=== PATIENT | female | born 1955 | race Hispanic/Latino ===

== ENCOUNTER 2024-09-28 06:37 | Day surgery (SDC) | payer OTHER ==
[2024-09-23 10:10] LABS: BASOPHILS # (AUTO) 0.06 K/uL (0.00-0.20); BASOPHILS % (AUTO) 0.7 % (0.0-5.0); EOSINOPHILS # (AUTO) 0.14 K/uL (0.00-0.70); EOSINOPHILS % (AUTO) 1.6 % (0.0-8.0); HEMATOCRIT 41.4 % (36-48); IMMATURE GRANULOCYTE ABSOLUTE 0.04 K/uL (0-1); LYMPHOCYTES # (AUTO) 1.5 K/uL (1.0-4.8); LYMPHOCYTES % (AUTO) 17.7 % (21.0-51.0); MEAN CORPUSCULAR HEMOGLOBIN 30.3 pg (27.0-33.0); MEAN CORPUSCULAR HGB CONC 31.9 g/dL (32.0-36.0); MEAN CORPUSCULAR VOLUME 95.2 fL (79-99); MONOCYTES # (AUTO) 0.3 K/uL (0.1-1.0); NEUTROPHILS # (AUTO) 6.5 K/uL (1.8-7.7); NEUTROPHILS % (AUTO) 75.5 % (40.0-77.0); PLATELET COUNT (AUTO) 245 K/uL (130-400); RED BLOOD CELL COUNT(AUTO) 4.35 MIL/uL (4.00-5.50); RED CELL DISTRIBUTION WIDTH 14.4 % (11.0-15.5); WHITE BLOOD COUNT (AUTO) 8.6 K/uL (4.8-10.8)
[2024-09-23 10:12] VITALS: PULSE 75; RESP 18; TEMP 97.2
[2024-09-23 10:23] LABS: PROTHROMBIN TIME 10.6 SEC (9.6-11.6)
[2024-09-23 10:24] LABS: PARTIAL THROMBOPLASTIN TIME 27.9 SEC (26.3-35.5); POTASSIUM 5.5 mmol/L (3.5-5.1)
[2024-09-23 10:27] LABS: CREATININE 8.7 mg/dL (0.5-1.0)
--- NOTE | 2024-09-23 11:06 | EKG ---
[facility] Test Date: 2024-09-23 Test Time: 10:15:56 Pat Name: DANI LINDQUIST Department: [facility] Room: Gender: F Hospital Pharmacist: [id number] : 1955 Requested By: ORLANDO CEDILLO Order Number: [id number] Reading MD: Isabel Burdick Measurements Intervals [place] Rate: 70 P: 49 SC: 151 QRS: 43 QRSD: 70 T: 62 QT: 391 QTc: 423 Interpretive Statements Sinus rhythm No previous ECG available for comparison Electronically Signed On 09-25-2024 09:32:59 CDT by Isabel Burdick Please click the below link to view image of tracing.
[2024-09-28] VITALS (15 sets, daily range): BP systolic 98–181; BP diastolic 42–75; PULSE 62–77; RESP 12–18; TEMP 97.2–97.6
[~2024-09-28] VITALS: Ht 152.4 cm; Wt 89.1 kg
[~2024-09-28 06:37] MED LIST: AMLO-257 PO; ASPI-1443 PO; CALC667T8 PO; CLOP75TA32 PO; DOCU100C33 PO; FOLI1TAB85 PO; FURO40TA5 PO; INSU100I15 SQ; INSU3INS3 SQ; LEVO50TA11 PO; ROSU40TA88 PO
[2024-09-28] MEDS: 0.9%NACL 1000ML 1,000 ML IV ONE (06:40)
[2024-09-28] MEDS: acetaMINOPHEN 100 ML ONE (07:21)
[2024-09-28] MEDS: FAMOTIDINE 20MG VIAL IV ONE (07:22)
[2024-09-28] MEDS ORDERED: LIDOCAINE PF 100MG/5ML (2%) SYRINGE 5ML ONE (07:29)
[2024-09-28] MEDS ORDERED: proPOFol 10 MG/ML 20ML VIAL IV ONE (07:30)
[2024-09-28] MEDS ORDERED: rocuRONium bROMide 10MG/1ML 5ML VL ONE (07:30)
[2024-09-28] MEDS ORDERED: FENTanyl CITRate PF 50 MCG/1 ML 2ML VIAL ONE (07:30)
[2024-09-28 07:31] LABS: POTASSIUM 5.6 mmol/L (3.5-5.1)
[2024-09-28 07:39] LABS: CREATININE 8.3 mg/dL (0.5-1.0)
[2024-09-28] MEDS ORDERED: ondanSETRON 4MG INJ ONE (08:25)
[2024-09-28] MEDS ORDERED: dexaMETHasone SOD PHOSPHATE 10MG/ML 1ML VIAL ONE (08:25)
[2024-09-28] MEDS ORDERED: HEParin-NS 1,000 UNIT/500 ML 500 ML IV ONE (08:27)
[2024-09-28] MEDS: ceFAZolin SODIUM 2 GM VIAL ONE (08:35)
[2024-09-28] MEDS ORDERED: HEParin 10,000 UNIT/10ML (1,000 UNIT/ML) VIAL ONE (08:37)
[2024-09-28] MEDS ORDERED: phenylEPHRINE HCL 10 MG/ML 1ML VIAL IV ONE (09:04)
[2024-09-28] MEDS ORDERED: GLYCOPYRROLATE 0.2 MG/ML 5 ML VIAL ONE (10:04)
[2024-09-28] MEDS ORDERED: NEOSTIGMINE METHYLSULFATE 1MG/ML IV ONE (10:04)
[2024-09-28] MEDS ORDERED: PROTamine SULFate 10 MG/ML 5 ML VIAL ONE (10:07)
[2024-09-28] MEDS: hydroMORPHone 1 MG INJ ONE (10:52)
--- NOTE | 2024-09-28 11:43 | OP ---
Operative Note: DATE OF PROCEDURE: 09/28/24 SURGEON: ORLANDO CEDILLO MD MACHINING ASSOCIATE: [] PREOPERATIVE DIAGNOSIS: End-stage renal disease POSTOPERATIVE DIAGNOSIS: End-stage renal disease PROCEDURE: Left upper extremity brachiobasilic fistula creation with transposition, and ligation of previous brachiocephalic fistula INDICATIONS: Patient needs access for dialysis ESTIMATED BLOOD LOSS: 15cc Devices left in place: None Anesthesia: General endotracheal DESCRIPTION OF PROCEDURE: Patient is brought to the operating room placed on the operating table in a supine position. Once general endotracheal anesthesia is achieved patient's left upper extremity up to the axilla is prepped and draped in sterile fashion. Using ultrasound we identified the basilic vein and confirmed that it was adequate for fistula creation. We then proceeded to create a longitudinal incision medially in the arm and dissected down through the subcutaneous tissue to expose the basilic vein. We exposed that for a length of about 20 cm down to the antecubital fossa. And clipped all its branches. We then proceeded to create a transverse incision at the antecubital fossa. Expose the brachial artery for a length of about 4 cm and obtained proximal and distal control. There was the previous fistula there that we ligated just distal to the anastomosis and then proceeded to ligate again more distal in the fistula and divided between the two ties. Our new anastomosis was done proximal to this previous anastomosis. We then asked anesthesia to give 5000 units of heparin. I then proceeded to clamp the basilic vein proximally and distally divided it at the level of the elbow. And suture ligated the distal and end. We then proceeded to to dilate the vein with heparinized saline and ensured that there were no leaks from all the branches were clipped or sutured. We then proceeded to use a [place] tunneler to tunnel the vein medially and brought it out through the antecubital fossa incision. I then clamped the brachial artery proximally and distally. I then proceeded to create a end-to-side anastomosis between the brachial artery and the basilic vein at the antecubital fossa with 6-0 Prolene. I then opened up the clamp to the vein first and that there to be backflow. And then proceeded to open the proximal clamp on the artery emanated flush out the anastomosis and then open the distal clamp. I then proceeded to suture the anastomosis. We ensured with a Doppler that we had a strong palmar arch pulse at the left hand and ulnar and radial pulses as well. We had a good thrill throughout the fistula. We then closed both incisions with 2 layers with subcutaneous tissue being closed with 2-0 Vicryl in running fashion and the skin was closed with 4-0 Monocryl in running fashion. Dermabond is applied over top of the incisions. Skin dressings were applied over top patient tolerated the procedure well all counts were correct x2 at the end of the procedure. ORLANDO CEDILLO MD Sep 28, 2024 11:43
--- NOTE | 2024-09-28 11:56 | NUR ---
Full and complete discharge instructions given to Patient and Family both verbally and in writing. Explained Surgical procedure precautions and follow up. LUE Fistula clean and dry. Thrill evident. Squeeze ball provided with d/c instructions. All questions answered. PIV removed with catheter tip intact. Home with Family W/C to POV.
[2024-09-29] MEDS ORDERED: ROSU40TA88 PO (20:55)
[2024-09-29] MEDS ORDERED: ERGO500093 PO (20:55)
[2024-09-29] MEDS ORDERED: SENN-31 PO (20:55)
== END 2024-09-28 12:05 | disposition home or self-care (01) ==
LOC: DAH 06:37
PROVIDERS: ATTEND Student in an Organized Health Care Education/Training Program
DX: I12.0 Hypertensive chronic kidney disease with stage 5 chronic kidney disease or end stage renal disease (principal); E11.22 Type 2 diabetes mellitus with diabetic chronic kidney disease; N18.6 End stage renal disease; K21.9 Gastro-esophageal reflux disease without esophagitis; F41.9 Anxiety disorder, unspecified; E07.9 Disorder of thyroid, unspecified; Z86.2 Personal history of diseases of the blood and blood-forming organs and certain disorders involving the immune mechanism; Z98.891 History of uterine scar from previous surgery; Z98.890 Other specified postprocedural states; Z95.1 Presence of aortocoronary bypass graft; Z83.3 Family history of diabetes mellitus; Z82.49 Family history of ischemic heart disease and other diseases of the circulatory system; Z88.8 Allergy status to other drugs, medicaments and biological substances; Z79.899 Other long term (current) drug therapy; Z79.82 Long term (current) use of aspirin; Z79.890 Hormone replacement therapy; Z99.2 Dependence on renal dialysis
CPT/HCPCS: 80048 ×2; 85025; 85610; 85730; 36415 ×2; 93005; 36832; 82948 ×2; 88304; A4223 ×2; A4600; A6260; A4663; J3490 ×3; J3010; J1171; J1100; J7030; J2003; J2720; J1644 ×2; J2704; J2405; J2710; J2371; J0690; A4649 ×3; C1713 ×2; A4930; A4215; A4213; A4222; A4221; A4216